=== PATIENT | male | born 1990 | race Two or more races ===

== ENCOUNTER 2019-11-15 03:08 | Emergency (ER) | payer SELFPAY ==
[~2019-11-15] VITALS: Ht 172.7 cm; Wt 52.0 kg
--- NOTE | 2019-11-15 03:14 | NUR ---
PT BIB REM FROM [facility] WHERE PT WAS PASSED OUT IN RESTROOM. PT REPORTED DRINKING 2 BOTTLES OF UZIEL TODAY. PT LOCALIZES TO PAIN. VSS, BLOOD SUGAR 83 PT PLACED ON SPO2/BP MONITORING, NAD, RESPIRATIONS EVEN AND UNLABORED WCTM.
--- NOTE | 2019-11-15 03:59 | NUR ---
LABS SENT, PT RESTING ON GURNEY, GIVEN WARM BLANKETS FOR COMFORT, NAD, RESP EVEN AND UNLABORED. WCTM. MTF.
[2019-11-15 04:10] LABS: ANION GAP 10 mmol/L (5-15); CALCIUM 8.6 mg/dL (8.5-10.1); CHLORIDE 108 mmol/L (98-107); CREATININE 0.69 mg/dL (0.55-1.3)
--- NOTE | 2019-11-15 04:54 | NUR ---
pt resting on gurney, eyes closed, no change in condition. wctm. nad. waiting for ct read.
--- NOTE | 2019-11-15 06:17 | NUR ---
Patient given discharge instructions and they have confirmed that they understand the instructions. Patient ambulatory with steady gait. NAD, denies additional questions or needs at his time. Provided taxi voucher, no personal belongings left in room at time of dc.
[2019-11-15 06:19] VITALS: BP 105/94
== END 2019-11-15 06:31 | disposition home or self-care (01) ==
LOC: ED 06:28
DX: G92 Toxic encephalopathy (principal); F10.120 Alcohol abuse with intoxication, uncomplicated; Y90.9 Presence of alcohol in blood, level not specified
CPT/HCPCS: 36415; 80048; 80307; 99283